=== PATIENT | male | born 1970 | race Caucasian/White ===

== ENCOUNTER 2016-05-18 19:49 | Emergency (ER) | payer OTHER ==
[~2016-05-18] VITALS: Ht 182.9 cm; Wt 80.2 kg
[2016-05-18 20:34] LABS: HEMATOCRIT 37.9 % (38.0-50.0); MCHC 39.1 G/DL (30.0-36.0); MCV 76.7 FL (86-99); MEAN PLAT.VOLUME 9.9 uM^3 (9.0-12.4); PLATELET COUNT 222 K/uL (156-360); RBC DIS.WIDTH-CV 12.8 % (11.8-14.6); RBC DIS.WIDTH-SD 34.1 % (39-53); RED BLOOD COUNT 4.94 M/uL (4.00-5.50)
[2016-05-18 20:43] LABS: CHLORIDE 100 mEq/L (99-109); POTASSIUM 4.7 mEq/L (3.7-5.4); SODIUM 131 mEq/L (136-147)
[2016-05-18 20:47] LABS: ANION GAP 13 MEQ/L (2-14)
[2016-05-18 20:48] LABS: TOTAL BILIRUBIN 0.2 mg/dL (0.0-1.0)
[2016-05-18 20:49] LABS: ALKALINE PHOSPHATASE 130 IU/L (3-129); GFR ESTIMATE (CALCULATED) > 59 mL/min/
[2016-05-18 20:50] LABS: UREA NITROGEN (BUN) 16 mg/dL (9-23)
[2016-05-18 20:51] LABS: GLUCOSE 512 mg/dL (70-99)
[2016-05-18 20:53] LABS: LIPASE 48 U/L (1.0-51.0)
[2016-05-18 20:54] LABS: ADD MIUA? NO; BILIRUBIN NEGATIVE; BLOOD NEGATIVE; COLOR STRAW ((YELLOW)); GLUCOSE (STRIP) >=500; KETONES 20; LEUKOCYTES NEGATIVE; NITRITE NEGATIVE; PROTEIN (STRIP) NEGATIVE; SPECIFIC GRAVITY 1.028 (1.000-1.030); UCUL ADDED? NO; UROBILINOGEN 0.2 MG/DL (0.2-1.0)
[2016-05-18 21:14] LABS: CARBON DIOXIDE (BICARBONATE) 25.6 MEQ/L (20-31)
[2016-05-18 22:18] LABS: POINT-OF-CARE METER ID UU13113800
[2016-05-18 22:23] VITALS: BP 144/82
[2016-05-19 12:31] LABS: POINT-OF-CARE METER ID UU13113800
== END 2016-05-18 22:24 | disposition home or self-care (01) ==
LOC: EME 19:49
PROVIDERS: Physician Assistant
DX: S39.011A Strain of muscle, fascia and tendon of abdomen, initial encounter (principal); X58.XXXA Exposure to other specified factors, initial encounter; R73.9 Hyperglycemia, unspecified
CPT/HCPCS: 74176; 80053; 81003; 82010; 82803; 82948; 83690; 85027; 99281; 99284; J7030